=== PATIENT | female | born 1990 | race Caucasian/White ===

== ENCOUNTER 2018-02-01 10:30 | Emergency (ER) | payer OTHER ==
[2018-02-01 10:50] VITALS: BP 102/70
[2018-02-01] MEDS ORDERED: TYLENOL PO ONE (11:29)
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
== END 2018-02-01 13:32 | disposition home or self-care (01) ==
LOC: ED 10:30
DX: O9A.212 Injury, poisoning and certain other consequences of external causes complicating pregnancy, second trimester (principal); O26.892 Other specified pregnancy related conditions, second trimester; R10.2 Pelvic and perineal pain; Z3A.17 17 weeks gestation of pregnancy
CPT/HCPCS: 76805; 99283